=== PATIENT | female | born 1975 | race Caucasian/White ===

== ENCOUNTER 2021-08-20 22:15 | Emergency (ER) | payer SELFPAY ==
[2021-08-20 22:25] VITALS: BP 117/65; PULSE 83; TEMP 98.4; BMI 24.2
== END 2021-08-20 22:47 | disposition home or self-care (01) ==
LOC: FER 22:15
DX: S89.91XA Unspecified injury of right lower leg, initial encounter (principal); Y99.8 Other external cause status
CPT/HCPCS: 99283-25